=== PATIENT | male | born 2000 | race Hispanic/Latino ===

== ENCOUNTER 2023-11-15 20:37 | Emergency (ER) | payer SELFPAY ==
[2023-11-15 20:42] VITALS: BP 152/77
--- NOTE | 2023-11-15 22:12 | ED.GENMED ---
History of Present Illness
General
Chief Complaint: Musculo-Skeletal Complaint
Source: patient
Exam Limitations: none
Time Seen by Provider: 11/15/23 22:05
Travel History
Have you had any contact with someone who has COVID-19?: No
Do you have any symptoms of coronavirus? Fever > 100 degrees, chills, cough, shortness of breath, sore throat, loss of taste or smell, muscle aches, or headache?: No
History of Present Illness
History of Present Illness:
See MDM
Past History
Past History
ED Past Medical History: None
ED Past Surgical History: None
Social History
Tobacco: Non-smoker
Alcohol: None
Phy Exam
Physical Exam
Physical Exam:
See MDM
Course
Orders/Labs/Results
Orders:
Orders
11/15/23 20:48
CR Elbow - Left Min 3 Views Urgent
Comment:
Reason For Exam: BOX FELL ONTO ARM
CR Shoulder, Trauma - Left Urgent
Comment:
Reason For Exam: BOX FELL ONTO ARM
Forearm, Left 2 View [CR Forearm - Left 2 View] Urgent
Comment:
Reason For Exam: BOX FELL ONTO ARM
11/15/23 22:12
Ibuprofen [Motrin] 600 mg PO NOW STA
Vital Signs
Initial and Last Documented VS:
Initial Vital Signs
Pulse Resp BP Pulse Ox
60 22 152/77 100
11/15/23 20:42 11/15/23 20:42 11/15/23 20:42 11/15/23 20:42
Last Documented Vital Signs
Pulse Resp BP Pulse Ox
60 22 152/77 100
11/15/23 20:42 11/15/23 20:42 11/15/23 20:42 11/15/23 20:42
MDM/Problems Addressed
Differential Diagnosis Includes:
HPI and MDM Narrative:
23-year-old male presenting with left shoulder pain. Patient was at work and was lifting a heavy box. Patient states the box fell on his shoulder. He is right-hand dominant. He denies numbness or tingling. He complains of pain with worsening
movement. He localizes the pain to left shoulder, left elbow and wrist
Physical exam
General: Well appearing and non-toxic
HEENT: protecting airway
Neck: Nontender, supple
CV: No evidence of cyanosis
Resp: No accessory muscle use
Abd: Non-distended
Extremities: No deformities. Mild tenderness to palpation left anterior shoulder. Mild pain with left shoulder external rotation. Distal extremity otherwise neurovascularly intact
Neuro: alert
Psych: Normal affect
Skin: Intact
Problems Addressed including Acute and Chronic Conditions affecting care:
1. Left shoulder pain
Acuity: acute
Prognosis: stable
Details: X-rays negative for fracture. Discussed Motrin and return precautions
Updates
Left shoulder x-ray, left elbow x-ray and left forearm x-ray negative for fracture or malalignment. We discussed likely rotator cuff strain and NSAIDs and decreased heavy lifting at work. His boss is at bedside and both gave verbal confirmation
understanding
Differential Diagnosis (but not limited to):
Testing considered:
Drug therapy (if applicable): OTC meds, please see d/c instruction regarding Rx drugs
Amount and/or Complexity of Data Reviewed
Clinical info obtained from: Patient
External data reviewed: N/A
Labs I independently reviewed (but not limited to): N/A
Radiology: X-ray independently reviewed: Shoulder and elbow x-ray negative
Pulse Ox: not hypoxic
EKG independently reviewed: N/A
Concrete Puddler: N/A
Critical Care: N/A
Risk of Complication:
Social Determinants of health: Good social support
Discussed with other providers: N/A
Escalation of Care includes Admit/Obs: After being observed in the Emergency Department, pt stable for discharge.
Occasional wrong word or 'sound a like' substitutions may have occurred due to the inherent limitations of voice recognition software. Read the chart carefully and recognize, using context, where substitutions have occurred.
*Critical Care Note
Total Time (30-74mins, 75-104mins- exclusive of procedures): Not Applicable
ED Attending Note
-
Portions of this chart may have been created with voice recognition software.� Occasional wrong word or��sound alike� substitutions may have occurred due to the inherent limitations of voice recognition software.
Discharge Plan
Departure
Patient Disposition: Home (Routine Discharge)
Date of Disposition: 11/15/23
Time of Disposition: 22:13
Patient with high blood pressure during this ER visit?: Yes
Discharge Problem:
Strain of rotator cuff of left shoulder
Instructions: Shoulder pain, BLOOD PRESSURE
Referrals:
NONE,* [Family Provider] -
Activity Restrictions/Additional Instructions:
Please return for any worsening symptoms.
You may return at any time if you have further concerns.
Please follow up with your doctor at the first available appointment, preferably this week.
Thank you for choosing [facility].
Interventions
Interventions:
*Risk Screen - Suicide Last Done: 11/15/23 20:43
*Neglect/Abuse Screening Last Done: 11/15/23 20:43
Discharge Date and Time
Print Language: UKRAINIAN
[2023-11-15] MEDS: MOTRIN 600 MG PO (22:18)
== END 2023-11-15 22:23 | disposition home or self-care (01) ==
LOC: EMR 20:37
PROVIDERS: EMERGENCY PHYSICIAN Student in an Organized Health Care Education/Training Program
DX: S46.012A Strain of muscle(s) and tendon(s) of the rotator cuff of left shoulder, initial encounter (principal); W22.8XXA Striking against or struck by other objects, initial encounter; Y99.0 Civilian activity done for income or pay; R03.0 Elevated blood-pressure reading, without diagnosis of hypertension
CPT/HCPCS: 99283; 73030; 73080; 73090